=== PATIENT | female | born 1990 | race Caucasian/White ===

== ENCOUNTER 2017-04-09 08:06 | Emergency (ER) | payer BC, MEDICAID ==
[~2017-04-09] VITALS: Ht 154.9 cm; Wt 105.2 kg
[~2017-04-09 08:06] MED LIST: CODE-54 PO; IBP600T1 PO; PREN1TAB64 PO
--- OUTSIDE RECORDS SUMMARY | 2017-04-09 08:13 | XMS REPORT | Continuity of Care Document ---
Author Author Counts Include [facility] At [facility] Address Unknown Phone Unavailable Allergies Active Description Code Type Severity Reaction Onset Reported/Identified Relationship to Patient Clinical Status Yes No Known Drug Allergies [id number] Drug Allergy Unknown N/ A 03/27/2009 Yes Penicillins Drug Allergy N/A N/A 08/22/2011 Medications Problems Date Dx Coded Attending Type Code Diagnosis Diagnosed By 03/29/2010 Ot 663.31 03/29/2010 Ot 664.41 03/29/2010 Ot V27.0 08/22/2011 MORE LOMBARDI APRN V25.02 CONTRACEPTION - ANY METHOD 08/22/2011 MORE LOMBARDI APRN V25.09 CONTRACEPTIVE COUNSELING - GENERAL 08/22/2011 MORE LOMBARDI APRN V72.31 GI ASST EXAM, ROUTINE 08/22/2011 MORE LOMBARDI APRN V72.41 TEST NEGATIVE RESULT 11/11/2011 MORE LOMBARDI APRN V25.49 CONTRACEPTION SURVEILLANCE (REPEAT RX) 09/17/2013 MORE LOMBARDI APRN 300.00 ANXIETY UNSPEC 07/25/2015 OMAR DAVIES Ot R10.2 07/28/2015 OMAR DAVIES Ot R10.2 07/28/2015 OMAR DAVIES [employer] Ot R10.2 08/14/2015 OMAR DAVIES [employer] Ot N83.20 08/14/2015 OMAR DAVIES [employer] Ot N94.1 08/14/2015 OMAR DAVIES [employer] Ot R10.2 Procedures Results Encounters ACCT No. Visit Date/Time Discharge Status Pt. Type Provider Facility Loc./Unit Complaint [id number] 09/17/2013 13:19:00 09/17/2013 23: 59:59 CLS Outpatient MORE LOMBARDI APRN [id number] 07/25/2015 10:30:00 2015 23:59:59 CLS Outpatient OMAR DAVIES [facility] RAD [id number] 07/12/2015 09:11:00 2015 23:59:59 NEGRITO Outpatient OMAR DAVIES [facility] RAD [id number] 03/26/2010 18:58:00 Document Registration
[2017-04-09] MEDS ORDERED: LIDOCAINE 2% VISCOUS 15 ML UDC PO ONE (08:30)
[2017-04-09] MEDS ORDERED: CITA20TA12 (08:30)
[2017-04-09] MEDS ORDERED: ANTACID SUSP 30 ML UDC (MYLANTA) PO ONE (08:30)
[2017-04-09] MEDS ORDERED: MEDR150D6 (08:30)
[2017-04-09 08:35] LABS: BASOPHILS % (AUTO) 0 % (0-10); EOSINOPHILS # (AUTO) 0.2 10^3/uL (0.0-0.3); EOSINOPHILS % (AUTO) 3 % (0-10); LYMPHOCYTES # (AUTO) 1.6 X 10^3 (1.0-4.0); LYMPHOCYTES % (AUTO) 22 % (12-44); MEAN CORPUSCULAR HEMOGLOBIN 28 PG (25-34); MEAN CORPUSCULAR HGB CONC 34 G/DL (32-36); MEAN CORPUSCULAR VOLUME 81 FL (80-99); MEAN PLATELET VOLUME 9.9 FL (7.4-10.4); MONOCYTES # (AUTO) 0.5 X 10^3 (0.0-1.0); MONOCYTES % (AUTO) 7 % (0-12); NEUTROPHILS % (AUTO) 69 % (42-75); PLATELET COUNT 257 10^3/uL (130-400); RED BLOOD COUNT 4.98 10^6/uL (4.35-5.85); WHITE BLOOD COUNT 7.3 10^3/uL (4.3-11.0)
--- NOTE | 2017-04-09 08:44 | ED Chest Pain ---
General Chief Complaint: Chest Pain Stated Complaint: CHEST/LEFT ARM PAIN SOA Nursing Triage Note: AMBULATED TO ROOM 05 WITH COMPLAINTS OF LEFT SIDED CHEST, ARM, AND NECK PAIN STARTING THIS AM WHILE AT WORK. STATES SHE HAS A HX OF ANXIETY. Nursing Sepsis Screen: No Definite Risk Source: patient Exam Limitations: no limitations History of Present Illness Time seen by provider: 08:06 Initial Comments Here with report of left-sided chest pain that started at 530 this morning. This started while at work. She states it's a little higher than her typical reflux pain. It has been persistent since onset. Also has some pain in her hands and feet which is been going on for a long time. She has a doctor's appointment for this tomorrow does admit to suffered from anxiety and states she is not sure if this is her anxiety or not. Denies nausea, vomiting or weakness but does feel short of breath. Timing/Duration: 1-3 hours, constant Severity/Quality: moderate Location: central (left-sided) Radiation: no radiation Activities at Onset: activity Prior CP/Workup: no prior cardiac workup ASA po [employer] DIRECTOR: No NTG SL STATE H[employer]ICAL [employer]IET[employer] DIRECTOR: No Associated Symptoms: No abdominal pain, No back pain, No fatigue, No nausea/ vomiting, shortness of breath, No weakness Allergies and Home Medications Allergies Coded Allergies: No Known Drug Allergies (Verified Allergy, Unknown, 03/27/09) Home Medications Citalopram Hydrobromide 20 Mg Tablet, (Reported) Medroxyprogesterone Acetate 150 Mg/1 Ml Syringe, (Reported) Review of Systems Constitutional: see HPI, No chills, No fever EENTM: No Symptoms Reported Respiratory: See HPI, Shortness of Air, Denies Wheezing Cardiovascular: See HPI, Chest Pain, Denies Lightheadedness, Denies Palpitations Gastrointestinal: No Symptoms Reported, Denies Diarrhea, Denies Nausea, Denies Vomiting Genitourinary: No Symptoms Reported Musculoskeletal: see HPI, joint pain, muscle pain All Other Systems Reviewed Negative Unless Noted: Yes Past Boxyobo-Bllpsl-Nnmuty Hx Patient Social History Alcohol Use: Denies Use Recreational Drug Use: No 2nd Hand Smoke Exposure: No Recent Foreign Travel: No Contact w/Someone Who Travel: No Recent Infectious Disease Expo: No Recent Hopitalizations: No Surgeries History of Surgeries: No Respiratory History of Respiratory Disorde: No Cardiovascular History of Cardiac Disorders: Yes Neurological History of Neurological Disord: No Reproductive System Hx Reproductive Disorders: No Gastrointestinal History of Gastrointestinal Di: Yes (HERNIA) Musculoskeletal History of Musculoskeletal Dis: No Endocrine History of Endocrine Disorders: No Psychosocial History of Psychiatric Problem: Yes Behavioral Health Disorders: Anxiety Blood Transfusions History of Blood Disorders: No Reviewed Nursing Assessment Reviewed/Agree w Nursing PMH: Yes Family Medical History Significant Family History: No Pertinent Family Hx Physical Exam Vital Signs Vital Sign - Last 12Hours 04/09/17 08:06 Temp 98.0 Pulse 97 Resp 18 B/P (MAP) 156/89 Pulse Ox 98 Capillary Refill : Less Than 3 Seconds General Appearance: No Apparent Distress, WD/WN HEENT: PERRL/EOMI, Pharynx Normal Neck: Non Tender, Supple Respiratory: Lungs Clear, Normal Breath Sounds Cardiovascular: Regular Rate, Rhythm, No Murmur Gastrointestinal: Non Tender, Soft Extremity: Normal Capillary Refill, Normal Inspection, Normal Range of Motion, Non Tender, No Calf Tenderness Neurologic/Psychiatric: Alert, Oriented x3 Skin: Normal Color, Warm/Dry Progress/Results/Core Measures Results/Orders Lab Results Laboratory Tests Test 04/09/17 08:19 Range/Units White Blood Count 7.3 4.3-11.0 10^3/uL Red Blood Count 4.98 4.35-5.85 10^6/uL Hemoglobin 13.8 11.5-16.0 G/DL Hematocrit 41 35-52 % Mean Corpuscular Volume 81 80-99 FL Mean Corpuscular Hemoglobin 28 25-34 PG Mean Corpuscular Hemoglobin Concent 34 32-36 G/DL Red Cell Distribution Width 13.0 10.0-14.5 % Platelet Count 257 130-400 10^3/uL Mean Platelet Volume 9.9 7.4-10.4 FL Neutrophils (%) (Auto) 69 42-75 % Lymphocytes (%) (Auto) 22 12-44 % Monocytes (%) (Auto) 7 0-12 % Eosinophils (%) (Auto) 3 0-10 % Basophils (%) (Auto) 0 0-10 % Neutrophils # (Auto) 5.0 1.8-7.8 X 10^3 Lymphocytes # (Auto) 1.6 1.0-4.0 X 10^3 Monocytes # (Auto) 0.5 0.0-1.0 X 10^3 Eosinophils # (Auto) 0.2 0.0-0.3 10^3/uL Basophils # (Auto) 0.0 0.0-0.1 10^3/uL D-Dimer 0.64 H 0.00-0.49 UG/ML Sodium Level 139 135-145 MMOL/L Potassium Level 3.8 3.6-5.0 MMOL/L Chloride Level 108 H 98-107 MMOL/L Carbon Dioxide Level 21 21-32 MMOL/L Anion Gap 10 5-14 MMOL/L Blood Urea Nitrogen 11 7-18 MG/DL Creatinine 0.78 0.60-1.30 MG/DL Estimat Glomerular Filtration Rate > 60 BUN/Creatinine Ratio 14 Glucose Level 99 70-105 MG/DL Calcium Level 9.6 8.5-10.1 MG/DL Total Bilirubin 0.5 0.1-1.0 MG/DL Aspartate Amino Transf (AST/SGOT) 17 5-34 U/L Alanine Aminotransferase (ALT/SGPT) 18 0-55 U/L Alkaline Phosphatase 77 40-136 U/L Troponin I < 0.30 <0.30 NG/ML Total Protein 7.7 6.4-8.2 GM/DL Albumin 4.4 3.2-4.5 GM/DL Lipase 14 8-78 U/L My Orders Orders - SHANNAN GONCALVES MD Urine Bedside (04/09/17 08:10) Ekg Tracing (04/09/17 08:10) Cbc With Automated Diff (04/09/17 08:28) Comprehensive Metabolic Panel (04/09/17 08:28) Fibrin Degradation Products (04/09/17 08:28) Lipase (04/09/17 08:28) Troponin I (04/09/17 08:28) Chest Pa/Lat (2 View) (04/09/17 08:28) Lidocaine 2% Viscous 15 Ml (Xylocaine Vi (04/09/17 08:30) Antacid Suspension (Mylanta Suspension (04/09/17 08:30) Saline Lock/Iv-Start (04/09/17 08:28) Ns Iv 1000 Ml (Sodium Chloride 0.9%) (04/09/17 09:53) Ct Angio Chest W (04/09/17 09:53) Iohexol Injection (Omnipaque 350 Mg/Ml 1 (04/09/17 10:15) Ns (Ivpb) (Sodium Chloride 0.9% Ivpb Bag (04/09/17 10:15) Medications Given in ED Current Medications Medications Dose Ordered Sig/Paco Route Start Time Stop Time Status Last Admin Dose Admin Al Hydrox/Mg Hydrox/Simethicone 30 ml ONCE ONCE PO 04/09/17 08:30 04/09/17 08:31 DC 04/09/17 08:35 30 ML Lidocaine HCl 15 ml ONCE ONCE PO 04/09/17 08:30 04/09/17 08:31 DC 04/09/17 08:35 15 ML Vital Signs/I&O Vital Sign - Last 12Hours 04/09/17 08:06 Temp 98.0 Pulse 97 Resp 18 B/P (MAP) 156/89 Pulse Ox 98 Blood Pressure Mean: 111 Progress Note : Progress Note Seen and evaluated. IV, labs, EKG and chest x-ray ordered. UCG ordered. GI cocktail ordered. Monitor patient. This did resolve her pain. D-dimer slightly elevated. CT angiogram chest ordered. Patient would like to hold off on this if possible and talk with her doctor tomorrow. I do believe that this slight elevation is likely related to gastritis from her anxiety but still unable to completely rule out pulmonary embolism. This was discussed with the patient at length as well as her . She would like to hold off on this for right now and try treatment for her stomach problems since her pain is now gone and her stomach feels better now than it ever has in a long time reportedly. Risk and benefits discussed. Patient verbalize understanding of instructions and agreement with plan. ECG Initial ECG Impression Date: Apr 09, 2017 Initial ECG Impression Time: 08:11 Initial ECG Rate: 94 Initial ECG Rhythm: Normal Sinus Initial ECG Comparisson: No Previous ECG Available Comment Sinus rhythm with normal axis. No evidence of ST elevation MO. No previous available for comparison. Interpreted by me. Diagnostic Imaging Diagonstic Imaging: Xray Plain Films/CT/US/NM/MRI: chest Comments NAME: CHAPARRO LAZAR [facility] REC#: [id number] PT STATUS: REG ER : 1990 PHYSICIAN: SHANNAN GONCALVES MD ADMIT DATE: 04/09/17/ER Signed Date of Exam: 04/09/17 CHEST PA/LAT (2 VIEW) PA and lateral views of the chest. INDICATION: Left-sided chest, arm and neck pain. No prior studies are available for comparison. FINDINGS: The lungs are clear. The heart size is normal. No effusion or pneumothorax. Mediastinum and tashi appear unremarkable. IMPRESSION: Unremarkable exam. Dictated by: Dictated on workstation # [id number] Dict: 04/09/1754 Trans: 04/09/1751 Interpreted by: CHRISSY FREEMAN MD Electronically signed by: CHRISSY FREEMAN MD 04/09/1751 Departure Impression Impression: Primary Impression: Chest pain Qualified Codes: R07.9 - Chest pain, unspecified Additional Impression: Gastroesophageal reflux disease Qualified Codes: K21.9 - Gastro-esophageal reflux disease without esophagitis Disposition: HOME, SELF-CARE Condition: Improved Departure-Patient Inst. Decision time for Depature: 10:25 Referrals: BOB MARTINES MD (PCP/Family) Primary Care Physician Patient Instructions: Acid Reflux (Gastroesophageal Reflux Disease), Adult (DC) , Chest Pain (DC) Add. Discharge Instructions: All discharge instructions reviewed with patient and/or family. Voiced understanding. It is important that he keep your appointment with her doctor tomorrow scheduled. Discussed with him about stomach pain and anxiety concerns. Also discuss results of today. Return for worse pain, fever, vomiting, weakness, breathing problems, persistent chest pain or other concerns as needed. You may take omeprazole 20 mg daily for the next 2 weeks and may take it up to 6 weeks. You can purchase this [id number]-[id number]. You can discussed this with your tomorrow as well. SHANNAN GONCALVES MD Apr 09, 2017 08:44
[2017-04-09 08:51] LABS: ALANINE AMINOTRANSFERASE 18 U/L (0-55); ALBUMIN 4.4 GM/DL (3.2-4.5); ANION GAP 10 MMOL/L (5-14); ASPARTATE AMINO TRANSFERASE 17 U/L (5-34); BILIRUBIN,TOTAL 0.5 MG/DL (0.1-1.0); BLOOD UREA NITROGEN 11 MG/DL (7-18); BUN/CREATININE RATIO 14; CALCIUM 9.6 MG/DL (8.5-10.1); CARBON DIOXIDE 21 MMOL/L (21-32); CHLORIDE 108 MMOL/L (98-107); CREATININE SERUM 0.78 MG/DL (0.60-1.30); GFR ESTIMATED > 60; GLUCOSE 99 MG/DL (70-105); LIPASE 14 U/L (8-78); POTASSIUM 3.8 MMOL/L (3.6-5.0); SODIUM 139 MMOL/L (135-145); TOTAL PROTEIN 7.7 GM/DL (6.4-8.2)
[2017-04-09 08:56] LABS: TROPONIN I < 0.30 NG/ML (<0.30)
--- NOTE | 2017-04-09 09:09 | Diagnostic Imaging Report ---
PA and lateral views of the chest. INDICATION: Left-sided chest, arm and neck pain. No prior studies are available for comparison. FINDINGS: The lungs are clear. The heart size is normal. No effusion or pneumothorax. Mediastinum and tashi appear unremarkable. IMPRESSION: Unremarkable exam. Dictated by: Dictated on workstation # [id number]
[2017-04-09] MEDS ORDERED: NS IV 1000 ML 1,000 ML IV ONE (09:53)
[2017-04-09] MEDS ORDERED: IOHEXOL 350 MG/ML 150 ML (OMNIPAQUE 350) VIAL IV ONE (10:15)
[2017-04-09] MEDS ORDERED: NS 100 ML (IVPB) BAG IV ONE (10:15)
[2017-04-09 10:34] VITALS: BP 135/90
== END 2017-04-09 10:34 | disposition home or self-care (01) ==
LOC: EDUNIT# 08:06 → ER 08:09
DX: K21.9 Gastro-esophageal reflux disease without esophagitis (principal); F41.9 Anxiety disorder, unspecified
CPT/HCPCS: 36415; 71020; 80053; 83690; 84484; 84703; 85025; 85379; 93005

== ENCOUNTER 2017-07-31 19:54 | Outpatient (CLI) | payer BC ==
[~2017-07-31 19:54] MED LIST changes: +CITA20TA12; +MEDR150D6
== END 2017-08-01 05:35 | disposition home or self-care (01) ==
LOC: SLEEP 19:54
PROVIDERS: ATTEND Family Medicine
DX: G47.10 Hypersomnia, unspecified (principal); G47.36 Sleep related hypoventilation in conditions classified elsewhere; R06.83 Snoring
CPT/HCPCS: 95810

== ENCOUNTER 2018-05-29 09:11 | Outpatient (RCR) | payer BC, OTHER | END 2018-08-27 | disposition home or self-care (01) | LOC: CARD 09:11 | PROVIDERS: ATTEND Nurse Practitioner Family | DX: R00.2 Palpitations (principal) | CPT/HCPCS: 93225; 93226 ==

== ENCOUNTER 2021-02-20 23:58 | Emergency (ER) | payer BC ==
[~2021-02-20] VITALS: Ht 154 cm; Wt 108.8 kg
[2021-02-21 00:10] VITALS: BP 151/108
[2021-02-21 00:48] LABS: BILIRUBIN,URINE NEGATIVE (NEGATIVE); CLARITY,URINE CLEAR; COLOR,URINE YELLOW; GLUCOSE, URINE (UA) NEGATIVE (NEGATIVE); KETONES,URINE NEGATIVE (NEGATIVE); LEUKOCYTE ESTERASE ,URINE TRACE (NEGATIVE); NITRITE,URINE NEGATIVE (NEGATIVE); PH,URINE 6.5 (5-9); PROTEIN,URINE NEGATIVE (NEGATIVE)
[2021-02-21 00:56] LABS: BASOPHILS % (AUTO) 0 % (0-10); EOSINOPHILS # (AUTO) 0.2 10^3/uL (0.0-0.3); EOSINOPHILS % (AUTO) 2 % (0-10); HEMATOCRIT 42 % (35-52); HEMOGLOBIN 13.5 g/dL (11.5-16.0); LYMPHOCYTES # (AUTO) 2.6 10^3/uL (1.0-4.0); LYMPHOCYTES % (AUTO) 21 % (12-44); MEAN CORPUSCULAR HEMOGLOBIN 28 pg (25-34); MEAN CORPUSCULAR HGB CONC 33 g/dL (32-36); MEAN CORPUSCULAR VOLUME 85 fL (80-99); MEAN PLATELET VOLUME 9.7 fL (9.0-12.2); MONOCYTES # (AUTO) 0.9 10^3/uL (0.0-1.0); MONOCYTES % (AUTO) 7 % (0-12); NEUTROPHILS # (AUTO) 8.8 10^3/uL (1.8-7.8); NEUTROPHILS % (AUTO) 70 % (42-75); PLATELET COUNT 296 10^3/uL (130-400); WHITE BLOOD COUNT 12.6 10^3/uL (4.3-11.0)
[2021-02-21 00:59] LABS: ALBUMIN 4.3 GM/DL (3.2-4.5); POTASSIUM 3.7 MMOL/L (3.6-5.0)
[2021-02-21 01:00] LABS: BACTERIA,URINE FEW /HPF; CALCIUM 9.8 MG/DL (8.5-10.1); RBC,URINE 0-2 /HPF
[2021-02-21 01:02] LABS: TOTAL PROTEIN 7.7 GM/DL (6.4-8.2)
[2021-02-21 01:03] LABS: BILIRUBIN,TOTAL 0.2 MG/DL (0.1-1.0)
[2021-02-21 01:05] LABS: CREATININE SERUM 0.85 MG/DL (0.60-1.30)
[2021-02-21] MEDS ORDERED: CATHETER FLUSH 10 ML SYR IV PRN (02:45)
[2021-02-21] MEDS ORDERED: NS 100 ML (IVPB) BAG IV ONE (02:45)
[2021-02-21] MEDS ORDERED: IOHEXOL 350 MG/ML 100 ML (OMNIPAQUE 350) VIAL IV ONE (02:45)
[2021-02-21] MEDS ORDERED: HOLD METFORMIN - RECEIVED CONTRAST 20 ML VIAL IV SCH (02:45)
--- NOTE | 2021-02-21 04:23 | ED Abdominal Pain ---
General Chief Complaint: Abdominal/GI Problems Stated Complaint: ABD PAIN MIDDLE & RT SIDE Nursing Triage Note: PT PRESENTS TO THE ED C/O RLQ ABD. PAIN THAT THE PATIENT STATES HAS WORSENED SIGNIFICANTLY TODAY. SYMPTOMS BEGAN YESTERDAY. PT VERBALIZES A HX OF ENDOMETRIOSIS, WAS SEEN BY PCP TODAY AND HAD LABS DRAWN WITH PELVIC SWAB FOR CONCERNS OF PAINFUL URINATION. PT LOCALIZES ABD. PAIN TO RLQ, VERBALIZES LOOSE STOOLS TODAY WELL. Source of Information: Patient, Old Records Exam Limitations: No Limitations History of Present Illness Date Seen by Provider: Feb 21, 2021 Time Seen by Provider: 00:38 Initial Comments This 30 year old young lady presents to the ER with complaints of RLQ pain. She has pain with walking and riding in a car. No fever. She has experienced some loose stools but no rogelio diarrhea. She was seen in the [facility] yesterday and had a pelvic exam. No treatment for infections was prescribed. Labs were performed here and have been reviewed. She had some mild leukocytosis and hematuria. The UA was collected after pelvic exam which caused spotting. She has history of suspected endometriosis. She retains her appendix. Positive pelvic pain with urination. Allergies and Home Medications Allergies Coded Allergies: No Known Drug Allergies (Verified , 03/27/09) Patient Home Medication List Home Medication List Reviewed: Yes Review of Systems Review of Systems Constitutional: no symptoms reported EENTM: No Symptoms Reported Respiratory: No Symptoms Reported Cardiovascular: No Symptoms Reported Gastrointestinal: See HPI Genitourinary: See HPI Musculoskeletal: no symptoms reported Skin: no symptoms reported Psychiatric/Neurological: No Symptoms Reported Endocrine: No Symptoms Reported Hematologic/Lymphatic: No Symptoms Reported Past Uemlviw-Wdhjbh-Pqdboc Hx Patient Social History Tobacco Use?: No Substance use?: No Immunizations Up To Date Influenza Vaccine Up-to-Date: Yes; Up-to-Date Past Medical History Surgeries: No Respiratory: No Cardiac: Yes Neurological: No : No Last Menstrual Period: Feb 13, 2021 Reproductive Disorders: Yes Female Reproductive Disorders: Endometriosis (possible) Genitourinary: No Gastrointestinal: Yes (HERNIA) Musculoskeletal: No Endocrine: No Cancer: No Psychosocial: Yes Anxiety Blood Disorders: No Family Medical History No Pertinent Family Hx Physical Exam Vital Signs Vital Signs - First Documented 02/21/21 00:10 Temp 37.6 Pulse 93 Resp 20 B/P (MAP) 151/108 (122) Pulse Ox 100 O2 Delivery Room Air Capillary Refill : Less Than 3 Seconds Height/Weight/BMI Height: 5'1.00" Weight: 232lbs. oz. 105.725847os; 45.00 BMI Method:Stated General Appearance: WD/WN, no apparent distress HEENT: PERRL/EOMI, normal ENT inspection, pharynx normal Neck: normal inspection Respiratory: lungs clear, normal breath sounds, no respiratory distress Cardiovascular: regular rate, rhythm, no edema, no murmur Gastrointestinal: normal bowel sounds, soft; No distended; tenderness (RLQ TTP. Mild tenderness with purcussion) Extremities: normal inspection, no pedal edema Neurologic/Psychiatric: topstitcher lockstitch II-XII nml as tested, no motor/sensory deficits, alert, normal mood/affect, oriented x 3 Skin: normal color, warm/dry Progress/Results/Core Measures Results/Orders Lab Results Laboratory Tests Test 02/21/21 00:20 02/21/21 01:17 Range/Units White Blood Count 12.6 H 4.3-11.0 10^3/uL Red Blood Count 4.89 3.80-5.11 10^6/uL Hemoglobin 13.5 11.5-16.0 g/dL Hematocrit 42 35-52 % Mean Corpuscular Volume 85 80-99 fL Mean Corpuscular Hemoglobin 28 25-34 pg Mean Corpuscular Hemoglobin Concent 33 32-36 g/dL Red Cell Distribution Width 13.1 10.0-14.5 % Platelet Count 296 130-400 10^3/uL Mean Platelet Volume 9.7 9.0-12.2 fL Immature Granulocyte % (Auto) 0 % Neutrophils (%) (Auto) 70 42-75 % Lymphocytes (%) (Auto) 21 12-44 % Monocytes (%) (Auto) 7 0-12 % Eosinophils (%) (Auto) 2 0-10 % Basophils (%) (Auto) 0 0-10 % Neutrophils # (Auto) 8.8 H 1.8-7.8 10^3/uL Lymphocytes # (Auto) 2.6 1.0-4.0 10^3/uL Monocytes # (Auto) 0.9 0.0-1.0 10^3/uL Eosinophils # (Auto) 0.2 0.0-0.3 10^3/uL Basophils # (Auto) 0.0 0.0-0.1 10^3/uL Immature Granulocyte # (Auto) 0.1 0.0-0.1 10^3/uL Urine Color YELLOW Urine Clarity CLEAR Urine pH 6.5 5-9 Urine Specific [place] 1.025 H 1.016-1.022 Urine Protein NEGATIVE NEGATIVE Urine Glucose (UA) NEGATIVE NEGATIVE Urine Ketones NEGATIVE NEGATIVE Urine Nitrite NEGATIVE NEGATIVE Urine Bilirubin NEGATIVE NEGATIVE Urine Urobilinogen 0.2 < = 1.0 MG/DL Urine Leukocyte Esterase TRACE H NEGATIVE Urine RBC (Auto) 1+ H NEGATIVE Urine RBC 0-2 /HPF Urine WBC 2-5 /HPF Urine Crystals NONE /LPF Urine Bacteria FEW H /HPF Urine Casts NONE /LPF Urine Mucus NEGATIVE /LPF Urine Culture Indicated YES Sodium Level 139 135-145 MMOL/L Potassium Level 3.7 3.6-5.0 MMOL/L Chloride Level 105 98-107 MMOL/L Carbon Dioxide Level 24 21-32 MMOL/L Anion Gap 10 5-14 MMOL/L Blood Urea Nitrogen 13 7-18 MG/DL Creatinine 0.85 0.60-1.30 MG/DL Estimat Glomerular Filtration Rate 80 BUN/Creatinine Ratio 15 Glucose Level 112 H 70-105 MG/DL Calcium Level 9.8 8.5-10.1 MG/DL Corrected Calcium 9.6 8.5-10.1 MG/DL Total Bilirubin 0.2 0.1-1.0 MG/DL Aspartate Amino Transf (AST/SGOT) 18 5-34 U/L Alanine Aminotransferase (ALT/SGPT) 23 0-55 U/L Alkaline Phosphatase 83 40-136 U/L C-Reactive Protein High Sensitivity 1.43 H 0.00-0.50 MG/DL Total Protein 7.7 6.4-8.2 GM/DL Albumin 4.3 3.2-4.5 GM/DL Serum Test, Qualitative NEGATIVE NEGATIVE SARS-CoV-2 RNA (RT-PCR) Not Detected Not Detecte Micro Results Microbiology 02/21/21 Urine Culture - Final, Complete Gram Pos Mixed Bacterial Yeimy My Orders Orders - JUDY MONTERO MD Cbc With Automated Diff (02/21/21 00:39) Comprehensive Metabolic Panel (02/21/21 00:39) Hs C Reactive Protein (02/21/21 00:39) Hcg,Qualitative Serum (02/21/21 00:39) Ua Culture If Indicated (02/21/21 00:39) Ed Iv/Invasive Line Start (02/21/21 00:39) Urine Culture (02/21/21 00:20) Covid 19 Inhouse Test (02/21/21 01:02) Ct Abdomen/Pelvis W (02/21/21 02:11) Iohexol Injection (Omnipaque 350 Mg/Ml 1 (02/21/21 02:45) Received Contrast (Hold Metformin- Contr (02/21/21 02:45) Sodium Chloride Flush (Catheter Flush Sy (02/21/21 02:45) Ns (Ivpb) (Sodium Chloride 0.9% Ivpb Bag (02/21/21 02:45) Ketorolac Injection (Toradol Injection) (02/21/21 04:30) Medications Given in ED Vital Signs/I&O 02/21/21 00:10 Temp 37.6 Pulse 93 Resp 20 B/P (MAP) 151/108 (122) Pulse Ox 100 O2 Delivery Room Air Blood Pressure Mean: 122 Progress Progress Note : Progress Note Labs were obtained. Patient again had leukocytosis. We discussed options including careful observation, US later in the day, vs CT in the ER. Benefits included ability to assess for kidney stone, cyst, appendicitis, ovarian torsion, etc. Risks included expossure to contrast, radiation exposure and cost. After discussing risks and benefits, she elected to proceed with CT scan. CT revealed ovarian cyst with no evidence for torsion, hemorrhage, appendicitis, ureteral stone or other pathology. Toradol was given prior to discharge. Diagnostic Imaging Diagonstic Imaging: CT Plain Films/CT/US/NM/MRI: abdomen, pelvis Comments CT abdomen pelvis viewed by me and stat rad report reviewed. Right ovarian cyst identified. Appendix normal. No evidence of ureteral stone or obstruction. Departure Impression Primary Impression: Right ovarian cyst Additional Impression: Right lower quadrant pain Disposition: HOME, SELF-CARE Condition: Improved Departure-Patient Inst. Decision time for Depature: 04:22 Referrals: ALLISON CATHERINE MD (PCP/Family) Primary Care Physician Patient Instructions: Ovarian Cysts, Abdominal Pain, Adult ED Add. Discharge Instructions: You may use ibuprofen up to 600 mg every 6 hours as needed and/or Tylenol (acetaminophen) up to 1000 mg every 6 hours as needed. Return to care if you have worsening symptoms. Call with any questions or concerns. All discharge instructions reviewed with patient and/or family. Voiced understanding. Work/School Note: Work Release Form Date Seen in the Emergency Department: Feb 20, 2021 Return to Work: Feb 22, 2021 Restrictions: No Restrictions Copy Copies To 1: ALLISON CATHERINE MD, JOSHUA T MD Feb 21, 2021 04:23
[2021-02-21] MEDS ORDERED: KETOROLAC 30 MG/ML VIAL IVP ONE (04:30)
--- NOTE | 2021-02-21 06:56 | Diagnostic Imaging Report ---
CT ABDOMEN/PELVIS W TECHNIQUE: Multiple contiguous axial images were obtained through the abdomen and pelvis after administration of intravenous contrast. All CT scans use one or more of the following dose optimizing techniques: automated exposure control, MA and/or KvP adjustment based on patient size and exam type or iterative reconstruction. INDICATION: Right lower quadrant pain. COMPARISON: None available. FINDINGS: Lower chest: The lung bases are clear. No pericardial or pleural effusion. Peritoneum: No free intraperitoneal air or fluid. Liver and biliary system: The liver is normal. The gallbladder is normal. No biliary duct dilation. Spleen and Pancreas: Spleen is normal. The pancreas enhances normally without mass lesion or peripancreatic inflammatory changes. Adrenals: Normal. tract: There are multiple regions of cortical thinning and wedge-shaped defects involving the right kidney, likely from prior infarct or infection. There are nonobstructing 5 mm stones in the lower pole the right kidney. Left kidney is normal. No hydronephrosis on either side. The urinary bladder is normal. Uterus and ovaries are physiologic in appearance. GI tract: Stomach is partially filled with fluid and food debris and there is no wall thickening. No bowel obstruction. No pericolonic inflammatory changes. Normal appendix. Vasculature and Lymph nodes: Normal caliber aorta. No abdominal or pelvic lymphadenopathy. Musculoskeletal: No concerning osseous lesion. IMPRESSION: 1. Normal appendix. 2. There are 2 adjacent nonobstructing 5 mm stones lower pole the right kidney. Additionally, there are multiple sites of cortical scar in the lower pole the right kidney. 3. Findings are in agreement with the preliminary report. Dictated by: Dictated on workstation # [id number]
== END 2021-02-21 04:30 | disposition home or self-care (01) ==
LOC: EDUNIT# 23:58 → ER 02-21 00:01
DX: N83.201 Unspecified ovarian cyst, right side (principal); D72.829 Elevated white blood cell count, unspecified; Z20.822 Contact with and (suspected) exposure to COVID-19
CPT/HCPCS: 36415; 74177; 80053; 81000; 84703; 85025; 86141; 87088; 87636

== ENCOUNTER → 2021-02-20 | Outpatient (CLI) | payer BC ==
[2021-02-20 18:17] LABS: BASOPHILS % (AUTO) 0 % (0-10); EOSINOPHILS # (AUTO) 0.2 10^3/uL (0.0-0.3); EOSINOPHILS % (AUTO) 2 % (0-10); HEMATOCRIT 41 % (35-52); HEMOGLOBIN 13.3 g/dL (11.5-16.0); LYMPHOCYTES # (AUTO) 2.2 10^3/uL (1.0-4.0); LYMPHOCYTES % (AUTO) 17 % (12-44); MEAN CORPUSCULAR HEMOGLOBIN 28 pg (25-34); MEAN CORPUSCULAR HGB CONC 33 g/dL (32-36); MEAN CORPUSCULAR VOLUME 85 fL (80-99); MEAN PLATELET VOLUME 9.1 fL (9.0-12.2); MONOCYTES # (AUTO) 0.7 10^3/uL (0.0-1.0); MONOCYTES % (AUTO) 6 % (0-12); NEUTROPHILS # (AUTO) 9.8 10^3/uL (1.8-7.8); NEUTROPHILS % (AUTO) 75 % (42-75); PLATELET COUNT 286 10^3/uL (130-400)
[2021-02-20 18:22] LABS: BILIRUBIN,URINE NEGATIVE (NEGATIVE); CLARITY,URINE CLEAR; COLOR,URINE YELLOW; GLUCOSE, URINE (UA) NEGATIVE (NEGATIVE); KETONES,URINE NEGATIVE (NEGATIVE); LEUKOCYTE ESTERASE ,URINE 1+ (NEGATIVE); NITRITE,URINE NEGATIVE (NEGATIVE); PROTEIN,URINE NEGATIVE (NEGATIVE)
[2021-02-20 18:34] LABS: ALBUMIN 4.2 GM/DL (3.2-4.5)
[2021-02-20 18:36] LABS: CALCIUM 9.4 MG/DL (8.5-10.1)
[2021-02-20 18:37] LABS: BACTERIA,URINE FEW /HPF; TOTAL PROTEIN 7.4 GM/DL (6.4-8.2)
[2021-02-20 18:39] LABS: AMORPHOUS SEDIMENT,UR RARE AMOR URATES /LPF; BILIRUBIN,TOTAL 0.3 MG/DL (0.1-1.0)
[2021-02-20 18:41] LABS: CREATININE SERUM 0.81 MG/DL (0.60-1.30)
== END ==
LOC: LAB 18:01
PROVIDERS: ATTEND Family Medicine
DX: R10.9 Unspecified abdominal pain (principal); R30.0 Dysuria
CPT/HCPCS: 36415; 80053; 81000; 85025; 87088